=== PATIENT | female | born 1980 | race Caucasian/White ===

== ENCOUNTER 2017-07-28 09:22 | Inpatient (IN) ==
--- NOTE | 2017-07-28 09:46 | Emergency Department Note ---
Disposition Clinical Impression: Vaginal delivery Disposition: Admitted As Inpatient Condition: Fair Abdominal Pain HPI - General Chief Complaint: ED Abdominal Pain Stated Complaint: ABD Pain Time Seen by Provider: 07/28/17 09:27 Source: patient, family Mode of arrival: ambulatory Limitations: physical limitation Nursing Notes Reviewed: Yes Vital Signs Reviewed: Yes - History of Present Illness HPI Narrative: Mrs. Snyder is a 37-year-old woman with no significant medical history of present to the ED with on and off pain for several weeks in her lower abdomen which became acutely worse and early this morning. The pain is located in the center of her abdomen and radiates outward, and she describes it as a cramping sensation similar to when she was elmer during . She says that associated with that she has had some nausea in the past couple of weeks. The pain is severe and constant. She took ibuprofen for which was not helpful. Nothing seems to make the pain any worse. Patient denies any vomiting, diarrhea , constipation. She does admit to having a Mirena IUD placed which has been there for approximately 4 years. She says that she has not had a menstrual cycle since the insertion of her IUD. She denies any fevers, chills, sweats. She has no other acute complaints. Pain Scale: 10 - Related Data Home Medications Medication Instructions Recorded Confirmed Ferrous Sulfate 1 tab PO DAILY 07/28/17 07/28/17 Fish Oil 1 tab PO DAILY 07/28/17 07/28/17 Vitamin B-12 1 tab PO DAILY 07/28/17 07/28/17 Vitamin D 1 tab PO DAILY 07/28/17 07/28/17 Previous Rx's Medication Instructions Recorded Ibuprofen 800 mg PO Q8HR PRN #20 tablet 07/28/17 Allergies Allergy/AdvReac Type Severity Reaction Status Date / Time No Known Allergies Allergy Verified 07/28/17 09:24 Constitutional: Denies: fever, chills, weakness Eyes: Denies: vision change Cardiovascular: Denies: chest pain, palpitations, dyspnea on exertion Gastrointestinal: Reports: abdominal pain, nausea. Denies: vomiting, diarrhea, constipation, melena, hematochezia Genitourinary: Reports: dysuria, frequency, other (Bleeding per vagina). Denies : urgency Musculoskeletal: Reports: back pain Integumentary: Denies: rash Neurological: Denies: headache Psychiatric: Reports: anxiety Endocrine: Denies: fatigue Hematological/Lymphatic: Denies: easy bleeding Abdominal Pain PMH - Past Medical History Medical history: Reports: no medical history Female Surgical History: Reports: no surgical history SUPERVISOR CELL EFFICIENCY history: Reports: no SUPERVISOR CELL EFFICIENCY history Psychiatric history: Reports: no psych history - Social History Smoking status: Never smoker Alcohol use: Reports: none Drug use: Reports: none Physical Exam Gen.: Vitals noted. No acute distress. AAOx3 HEENT: Normocephalic, atraumatic Neck: Supple. No adenopathy. Cardiac: RRR, no murmur, +S1/S2 Pulmonary: CTA bilaterally, no wheezes, rales or rhonchi, equal chest expansion Abdomen: Upper quadrant soft/nontender, there is a palpable firm mass in the location of the uterus which rises to the level of the ubilicus. Back: Nontender throughout. MSK: ROM intact, no joint swelling noted Extremities: no BLE edema, nontender calf, no cyanosis or clubbing Neuro: A&Ox3, moves all extremities, no focal deficits Psych: Appropriate mood and behavior - General Limitations: no limitations General appearance: alert, in no apparent distress Course Vital Signs Temperature 97.6 F 07/28/17 09:24 Pulse Rate 66 07/28/17 09:24 Respiratory Rate 16 07/28/17 09:24 Blood Pressure 134/60 07/28/17 09:24 O2 Sat by Pulse Oximetry 100 07/28/17 09:24 Temperature 97.6 F 07/28/17 09:24 Pulse Rate 66 07/28/17 09:24 Respiratory Rate 16 07/28/17 09:24 Blood Pressure 134/60 07/28/17 09:24 O2 Sat by Pulse Oximetry 100 07/28/17 09:24 Oxygen Delivery Oxygen Delivery Room Air Abdominal Pain - MDM Narrative Medical decision making narrative: Refer to attending's chart for further update. - Lab Data Result diagrams: 07/28/17 09:55 07/28/17 09:55 Lab Results 07/28/17 07/28/17 07/28/17 Range/Units 09:55 09:55 09:55 WBC 13.0 H (4.3-11.1) K/mcL RBC 4.79 (3.82-4.97) M/mcL Hgb 14.9 (11.5-15.4) g/dL Hct 43.3 (35.3-44.9) % MCV 90.4 (83.0-100.0) fL MCH 31.1 (28.0-33.3) pg MCHC 34.4 (31.6-35.5) g/dL RDW 12.8 (11.5-14.5) % Plt Count 292 (140-400) K/mcL MPV 9.4 (9.4-12.4) fL Immature Gran % 0.4 (0-4) % Seg Neutrophils % 86.0 % Lymphocytes % 9.0 % Monocytes % 3.7 % Eosinophils % 0.6 % Basophils % 0.3 % Neutrophils # 11.2 H (1.6-8.9) K/mcL Lymphocytes # 1.2 (0.6-4.6) K/mcL Monocytes # 0.5 (0.0-1.3) K/mcL Eosinophils # 0.1 (0.0-0.6) K/mcL Basophils # 0.0 (0.0-0.2) K/mcL Sodium 137 (136-145) mEq/L Potassium 3.7 (3.5-5.1) mEq/L Chloride 107 (98-107) mEq/L Carbon Dioxide 23 (23-29) mEq/L BUN 8 (6-20) mg/dL Creatinine 0.50 L (0.60-1.20) mg/dL Est GFR ( Amer) > 60 (> 60) Est GFR (Non-Af Amer) > 60 (> 60) BUN/Creatinine Ratio 16 (6-26) Glucose 99 (70-105) mg/dL Calculated Osmolality 282 (280-300) Lactic Acid 1.2 (0.5-2.2) mmol/L Calcium 8.5 L (8.6-10.3) mg/dL Total Bilirubin 0.3 (0.3-1.0) mg/dL Direct Bilirubin 0.0 (0.0-0.2) mg/dL Indirect Bilirubin 0.3 (0.0-1.2) mg/dL AST 21 (13-39) Units/L ALT 24 (7-52) Units/L Alkaline Phosphatase 138 H (34-104) Units/L Serum Total Protein 6.4 (6.4-8.9) g/dL Albumin 3.5 (3.5-5.7) g/dL Globulin 2.9 (2.4-3.5) g/dL Albumin/Globulin Ratio 1.2 (1.1-2.2) Amylase 52 (29-103) Units/L Lipase 13 (11-82) Units/L Beta HCG, Quant 1878 H (Less than 5) mIU/mL Blood Type Antibody Screen 07/28/17 Range/Units 10:42 WBC (4.3-11.1) K/mcL RBC (3.82-4.97) M/mcL Hgb (11.5-15.4) g/dL Hct (35.3-44.9) % MCV (83.0-100.0) fL MCH (28.0-33.3) pg MCHC (31.6-35.5) g/dL RDW (11.5-14.5) % Plt Count (140-400) K/mcL MPV (9.4-12.4) fL Immature Gran % (0-4) % Seg Neutrophils % % Lymphocytes % % Monocytes % % Eosinophils % % Basophils % % Neutrophils # (1.6-8.9) K/mcL Lymphocytes # (0.6-4.6) K/mcL Monocytes # (0.0-1.3) K/mcL Eosinophils # (0.0-0.6) K/mcL Basophils # (0.0-0.2) K/mcL Sodium (136-145) mEq/L Potassium (3.5-5.1) mEq/L Chloride (98-107) mEq/L Carbon Dioxide (23-29) mEq/L BUN (6-20) mg/dL Creatinine (0.60-1.20) mg/dL Est GFR ( Amer) (> 60) Est GFR (Non-Af Amer) (> 60) BUN/Creatinine Ratio (6-26) Glucose (70-105) mg/dL Calculated Osmolality (280-300) Lactic Acid (0.5-2.2) mmol/L Calcium (8.6-10.3) mg/dL Total Bilirubin (0.3-1.0) mg/dL Direct Bilirubin (0.0-0.2) mg/dL Indirect Bilirubin (0.0-1.2) mg/dL AST (13-39) Units/L ALT (7-52) Units/L Alkaline Phosphatase (34-104) Units/L Serum Total Protein (6.4-8.9) g/dL Albumin (3.5-5.7) g/dL Globulin (2.4-3.5) g/dL Albumin/Globulin Ratio (1.1-2.2) Amylase (29-103) Units/L Lipase (11-82) Units/L Beta HCG, Quant (Less than 5) mIU/mL Blood Type O POSITIVE Antibody Screen NEGATIVE
[2017-07-28] MEDS ORDERED: *HR* Morphine 2 MG/ML SYRINGE IVP ONE (09:57)
[2017-07-28 10:05] LABS: Basophils % 0.3 %; Eosinophils # 0.1 K/mcL (0.0-0.6); Eosinophils % 0.6 %; Hematocrit 43.3 % (35.3-44.9); Hemoglobin 14.9 g/dL (11.5-15.4); Immature Granulocytes % 0.4 % (0-4); Lymphocytes # 1.2 K/mcL (0.6-4.6); Mean Corpuscular HGB Conc 34.4 g/dL (31.6-35.5); Mean Corpuscular Hemoglobin 31.1 pg (28.0-33.3); Mean Corpuscular Volume 90.4 fL (83.0-100.0); Mean Platelet Volume 9.4 fL (9.4-12.4); Monocytes # 0.5 K/mcL (0.0-1.3); Monocytes % 3.7 %; Neutrophils # 11.2 K/mcL (1.6-8.9); Platelet Count 292 K/mcL (140-400); Red Blood Count 4.79 M/mcL (3.82-4.97); Red Cell Distribution Width 12.8 % (11.5-14.5)
[2017-07-28] MEDS ORDERED: *HR* Oxytocin 10 UNIT/ML VIAL IM ONE (10:07)
[2017-07-28] MEDS ORDERED: miSOPROStol 100 MCG TABLET RC STA (10:07)
--- NOTE | 2017-07-28 10:10 | Emergency Department Note ---
START Narrative - START START: please disregard this chart
--- NOTE | 2017-07-28 10:13 | Emergency Department Note ---
Disposition Clinical Impression: Vaginal delivery Disposition: Admitted As Inpatient Condition: Fair Referrals: NONE,PCP [Primary Care Provider] - Osmin Prather [Family Provider] - Forms: ED Satisfaction Letter, Work/School Release Time of Disposition: 10:22 HPI - General Chief complaint: ED Abdominal Pain Stated complaint: ABD Pain Time Seen by Provider: 07/28/17 09:27 Source: patient, family Mode of arrival: ambulatory Limitations: no limitations - History of Present Illness HPI Narrative: Concern about status. 37 winnie old female presents to the ED with complaints of lower abdominal pain and currently has a mirena in place. Patient follows with Dr. Lopez and resident is concerned about a uterus that was about to her umbilical area measuring at about 20 weeks. Patient states she is having difficutl turning on to her back because of the pain and appears umcomfortable and in the position when I came with the ultrasound for stat examination of IUP. During my interaction patient staets that she felt something was coming out of her and ran to the bathroom and saton the toilet and said that somethign came out and that she felt increasingly better. At that time I witness a breech still in the canal and feet were hanging into the toilet. We called an OB ALERT. We slowly transitioned patient to the ED cot.. I stablized the and staff helped move her to the bed. We placed her in the lithomy position and Dr. Dumont was at bedside. No pulse in the cord, placenta not delivered. Baby is not moving and appears blue. Arms are still in the canal and head is at the vertex. Dr. Dumont has delivered and infant is nonreactive and is [address] Resendiz [address] Zaman (peds) is present now and has taken over care. Pitocin, Cytotec, IVF and morphine ordered. - Related Data Allergies Allergy/AdvReac Type Severity Reaction Status Date / Time No Known Allergies Allergy Verified 07/28/17 09:24 Constitutional: Denies: fever, chills, weakness Eyes: Denies: vision change Cardiovascular: Denies: chest pain, palpitations, dyspnea on exertion Gastrointestinal: Reports: abdominal pain, nausea. Denies: vomiting, diarrhea, constipation, melena, hematochezia Genitourinary: Reports: dysuria, frequency, other (Bleeding per vagina). Denies : urgency Musculoskeletal: Reports: back pain Integumentary: Denies: rash Neurological: Denies: headache Psychiatric: Reports: anxiety Endocrine: Denies: fatigue Hematological/Lymphatic: Denies: easy bleeding PMH - Social History Smoking Status: Never smoker Alcohol use: Reports: none Drug use: Reports: none Physical Exam - General Limitations: no limitations General appearance: alert, other (appear uncomfortable and in position) - Head Head exam: atraumatic, normocephalic, normal inspection - Eye Eye exam: Present: normal appearance, PERRL, EOMI - Expanded Eye Exam Pupils: Bilateral: reactive - ENT ENT exam: normal exam, normal oropharynx, mucous membranes moist - Expanded ENT Exam External ear exam: Present: normal external inspection Mouth exam: Present: normal external inspection Teeth exam: Present: normal inspection Throat exam: Present: normal inspection - Neck Neck exam: Present: normal inspection, full ROM, trachea midline - Chest Chest inspection: Present: normal inspection, symmetric chest wall rise - Respiratory Respiratory exam: Present: normal lung sounds bilaterally - Cardiovascular Cardiovascular exam: Present: regular rate, normal rhythm, normal heart sounds - Abdominal Exam Abdominal exam: Present: soft, tenderness, distention, normal bowel sounds, other (possible uterus to umbilical, measuring at least 20 weeks). Absent: Non-Tender, guarding, rebound, rigidity Abdominal tenderness: Present: moderate - Female Reimbursement Analyst present during exam: Yes External Exam: Present: other ( in breech position) - Extremities Exam Extremities exam: Present: normal inspection, full ROM. Absent: tenderness, pedal edema - Expanded Upper Extremity Exam Shoulder exam: Present: normal inspection, full ROM Arm exam: Present: normal inspection, full ROM Elbow exam: Present: normal inspection, full ROM Forearm/Wrist exam: Present: normal inspection, full ROM Hand exam: Present: normal inspection, full ROM Vascular exam: Normal: capillary refill, radial pulse - Expanded Lower Extremity Exam Hip/Pelvis exam: Present: normal inspection, full ROM Upper leg exam: Present: normal inspection, full ROM Knee exam: Present: normal inspection, full ROM Lower leg exam: Present: normal inspection, full ROM Ankle exam: Present: normal inspection, full ROM Foot/toe exam: Present: normal inspection, full ROM Neurovascular/Tendon exam: Absent: motor deficit, sensory deficit, tendon deficit - Back Exam Back exam: Present: normal inspection, full ROM. Absent: tenderness - Neurological Exam Neurological exam: Present: alert, oriented X3 - Expanded Neurological Exam Patient oriented to: Present: person, place, time Coma Scale Eye Opening: Spontaneous Coma Scale Motor Response: Obeys Commands Coma Scale Verbal Response: Oriented Coma Scale Total: 15 - Psychiatric Psychiatric exam: Present: normal affect, normal mood - Skin Skin exam: Present: warm, dry, intact, normal color Course Course Narrative: delores has been transferred to care to [facility]. Pelvic US has been called for stat ultrasound per Dr. Dumont. Dr. 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 Vital Signs Temperature 97.6 F 07/28/17 09:24 Pulse Rate 66 07/28/17 09:24 Respiratory Rate 16 07/28/17 09:24 Blood Pressure 134/60 07/28/17 09:24 O2 Sat by Pulse Oximetry 100 07/28/17 09:24 Temperature 97.6 F 07/28/17 09:24 Pulse Rate 66 07/28/17 09:24 Respiratory Rate 16 07/28/17 09:24 Blood Pressure 134/60 07/28/17 09:24 O2 Sat by Pulse Oximetry 100 07/28/17 09:24 Oxygen Delivery Oxygen Delivery Room Air OB/Uterine Contractions - Lab Data Result diagrams: 07/28/17 09:55 Lab Results 07/28/17 Range/Units 09:55 WBC 13.0 H (4.3-11.1) K/mcL RBC 4.79 (3.82-4.97) M/mcL Hgb 14.9 (11.5-15.4) g/dL Hct 43.3 (35.3-44.9) % MCV 90.4 (83.0-100.0) fL MCH 31.1 (28.0-33.3) pg MCHC 34.4 (31.6-35.5) g/dL RDW 12.8 (11.5-14.5) % Plt Count 292 (140-400) K/mcL MPV 9.4 (9.4-12.4) fL Immature Gran % 0.4 (0-4) % Seg Neutrophils % 86.0 % Lymphocytes % 9.0 % Monocytes % 3.7 % Eosinophils % 0.6 % Basophils % 0.3 % Neutrophils # 11.2 H (1.6-8.9) K/mcL Lymphocytes # 1.2 (0.6-4.6) K/mcL Monocytes # 0.5 (0.0-1.3) K/mcL Eosinophils # 0.1 (0.0-0.6) K/mcL Basophils # 0.0 (0.0-0.2) K/mcL
[2017-07-28] MEDS ORDERED: LR IVC SCH (10:15)
[2017-07-28] MEDS ORDERED: OXYTOCIN 20 UNIT IVC SCH (10:15)
--- NOTE | 2017-07-28 10:56 | Event Note ---
Date of Encounter: 07/28/17 Time of Encounter: 10:15 Responded to page to ER after vaginal breech delivery of stillborn . 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 Bruising also noted over head/neck with severe molding. Weight 2 lbs 10.6 oz. placed in mother's arms and provided above information to parents. Mom had IUD in 2012, reports that she did not know that she was and had never felt any movement. Ressured them that there was likely nothing that they did or didn't do that caused this, answered their questions and offered further support as needed.
[2017-07-28] MEDS ORDERED: Naloxone 0.4 MG/ML INJ IVP PRN (11:00)
[2017-07-28] MEDS ORDERED: Ondansetron 4 MG/2 ML VIAL IVP PRN ×2 (11:00→12:30)
[2017-07-28] MEDS ORDERED: Ringers Solution, Lactated 1,000 ML IVC SCH (11:00)
[2017-07-28] MEDS ORDERED: Famotidine 20 MG/2 ML VIAL IVP PRN (11:00)
[2017-07-28 11:14] LABS: Albumin 3.5 g/dL (3.5-5.7); Amylase 52 Units/L (29-103); Bilirubin,Indirect 0.3 mg/dL (0.0-1.2); Bilirubin,Total 0.3 mg/dL (0.3-1.0); Calcium 8.5 mg/dL (8.6-10.3); Carbon Dioxide 23 mEq/L (23-29); Chloride 107 mEq/L (98-107); Potassium 3.7 mEq/L (3.5-5.1); Sodium 137 mEq/L (136-145)
[2017-07-28 11:20] LABS: Alanine Aminotransferase 24 Units/L (7-52); Albumin/Globulin Ratio 1.2 (1.1-2.2); Alkaline Phosphatase 138 Units/L (34-104); Aspartate Amino Transferase 21 Units/L (13-39); BUN/Creatinine Ratio 16 (6-26); Blood Urea Nitrogen 8 mg/dL (6-20); Globulin 2.9 g/dL (2.4-3.5); Glucose 99 mg/dL (70-105); Lipase 13 Units/L (11-82); Osmolality,Calculated 282 (280-300); Total Protein 6.4 g/dL (6.4-8.9); eGFR For African Americans > 60 (> 60); eGFR For Non-African Americans > 60 (> 60)
--- NOTE | 2017-07-28 11:24 | OB/GYN Procedure Note ---
Delivery - Delivery Date: 07/28/17 Provider: Nora Dumont Intrapartum events: other(please specify) (Unknown , unknown dates prior to arrival and delivery in the emergency department) Delivery induction: none Delivery monitor: none Anesthesia: none Estimated Blood Loss: 50 - Infant (s) Infant A Infant Delivery Date: 07/28/17 Infant Delivery Time: 10:08 Presentation: eddie breech Position: unknown (LOS/ breech) Route of delivery: Gender: Female Viability: Nonviable Pounds: 2 Ounces: 11 Shoulder Dystocia: not encountered Placenta: spontaneous (Delayed delivery by approximately 5 hours) Cord: 2 umbilical vessels - Repair Episiotomy: none Laceration Description: None - Complications Delivery complications: none Delivery comments: Patient to the ED complaining of lower abdominal pain. Her abdomen was noted to be gravid, patient was not aware of being at the time. She presented emergency department because of abdominal cramping. She went to the restroom and felt something coming out. She had a gush of fluid at that time. No bleeding. She was put back in bed and no be alert was called. I presented with the fetus being delivered up to the head. The arms were delivered and head flexion was performed with suprapubic pressure. The head was then delivered. The fetus was not alive at the time of delivery. It appeared to have been a demise prior to arrival. The cord was clamped and cut. The cord appeared hemorrhagic. It appears to be a 2 vessel cord. The placenta did not spontaneously deliver. The patient was given 400 mcg of Cytotec and IV Pitocin was started along with the fluid bolus. She was taken to labor and delivery for further evaluation and treatment. The patient was given 200 MCG use of Cytotec at 1430. At 1459 she pushed out a placenta intact with a 50 mL total blood loss. Placenta appeared small. - Disposition Mom disposition: stable in LDR (Taken to labor and delivery after delivery of fetus in the emergency department)
--- NOTE | 2017-07-28 11:35 | OB/GYN History & Physical ---
Date of Encounter: 07/28/17 Time of Encounter: 11:29 Assessment and Plan (1) Breech presentation delivered Current visit: Yes Status: Acute Fetus successfully delivered in eddie breech presentation of nonviable, fetus with multiple malformations (2) No care in current Current visit: Yes Status: Acute Patient reports an LMP of 1 year ago with the Mirena IUD in place. IUD has not been identified at this time. Patient denies being aware of Qualifiers: Trimester: third trimester Qualified Code(s): O09.33 - Supervision of with insufficient care, third trimester (3) Blood type O+ Current visit: Yes Status: Acute Patient does not need RhoGAM (4) malformation Current visit: Yes Status: Acute Fetus assessed by Dr. Zaman. Patient has not yet decided whether she requests genetic testing or autopsy (5) labor with delivery Current visit: Yes Status: Acute Patient unaware of status. Presented in labor with delivery in the emergency department (6) Advanced maternal age in multigravida Current visit: Yes Status: Acute Currently delivered without care. 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 Snyder is a 37 year old female who presented to emergency department complaining of abdominal pain which started last evening. She had a small amount of spotting earlier in the day. When she arrived she reported no active vaginal bleeding and no gushes of fluid. She stated she had a Mirena IUD in for 4 years ago. After exam review of office records revealed that she had an IUD removal and insertion of Mirena on 07/14/13 and had a follow-up office visit on 08/28/13 in IUD thread was visualized. She has not been seen since. She reports a menstrual cycle about a year ago. She reports that she does not check her IUD thread. She had normal term deliveries in 2000 and 2006. Upon arrival it was noticed that there was something protruding through the vagina. The patient had gotten up to go to the bathroom and felt a gush of fluid and something coming out. It was identified at that time that she was delivering a fetus. An OB alert was called and we presented to the ED as the OB team. Past Med Surg Social Fam HX - Past Medical History Source: patient, old records reviewed Medical history: no medical history Psychiatric history: no psych history - Past Surgical History Surgical History: no surgical history - Social History Smoking Status: Never smoker Smokeless Tobacco Status: No Alcohol use: none Drug use: none Obstetrical History - Pregnancies : 3 Para: 2 Term: 2 Medications and Allergies 3 Allergy/AdvReac Type Severity Reaction Status Date / Time No Known Allergies Allergy Verified 07/28/17 09:24 Review of System OB All systems PM: reviewed and no additional remarkable complaints except as stated - Gastrointestinal Gastrointestinal: abdominal pain, cramping - Genitourinary Genitourinary: as per HPI - Menstruation Menstruation: as per HPI, amenorrhea on BC Exam - Vital Signs Vital signs: Initial Vital Signs Temp Pulse Resp BP Pulse Ox 97.6 F 66 16 134/60 100 07/28/17 09:24 07/28/17 09:24 18 09:24 07/28/17 09:24 07/28/17 09:24 - Constitutional Constitutional: well developed, well nourished, average body habitus, moderate distress - HEENT HEENT: Normocephaly, Mucus Membranes Moist - Neck Neck exam: normal inspection, supple - Lungs Respiratory exam: CTAB - Cardiovascular Cardiovascular exam: RRR - Abdomen Abdomen: Present: bowel sounds normal, gravid - Extremities Extremities exam: normal inspection (Varicose veins noted in the right lower extremity), warm Deep Tendon Reflex Grade: 3+ Normal But Brisk - Vulva Vulva: bilateral: normal - Vagina Vagina: Present: normal moisture - Uterus Uterus exam: Present: enlarged, tender - Anus/Rectum Anus/Rectum: Present: normal perianal skin Results Result Diagrams: 07/28/17 09:55 07/28/17 09:55 Abnormal lab results WBC 13.0 K/mcL (4.3-11.1) H 07/28/17 09:55 Neutrophils # 11.2 K/mcL (1.6-8.9) H 07/28/17 09:55 Creatinine 0.50 mg/dL (0.60-1.20) L 07/28/17 09:55 Calcium 8.5 mg/dL (8.6-10.3) L 07/28/17 09:55 Alkaline Phosphatase 138 Units/L (34-104) H 07/28/17 09:55 All other labs normal. - VTE Reasons for not Prescribing Prophylaxis: Treatment not Indicated - Low risk for VTE
[2017-07-28] MEDS ORDERED: Acetaminophen 325 MG TABLET PO PRN (12:30)
[2017-07-28] MEDS ORDERED: Measles/Mumps/Rubella Vacc 0.5 ML VIAL SQ PRN (12:30)
[2017-07-28] MEDS ORDERED: Oxytocin 20 units/ LR 1000 mL 20 UNIT/1,000 ML BAG IVC SCH ×2 (12:30)
--- NOTE | 2017-07-28 13:18 | Event Note ---
Date of Encounter: 07/28/17 Time of Encounter: 13:15 The patient reports some mild cramping. Afeb, VSS. She has not experienced any bleeding. Placenta checked and still in place. Aida clamp removed and plastic cord clamp placed for patient comfort. Gentle traction was applied and suprapubic pressure applied but no placental delivery eminent. 1 IV Pitocin bag has been given. Patient currently on IV Pitocin at 125. She will be scheduled for 200 MCG's of Cytotec at 1430.
[2017-07-28] MEDS ORDERED: miSOPROStol 100 MCG TABLET PO ONE (14:30)
[2017-07-28] MEDS: Ibuprofen 600 MG TABLET PO PRN ×2 (14:43→21:14)
--- NOTE | 2017-07-28 18:14 | Event Note ---
Date of Encounter: 07/28/17 Time of Encounter: 18:12 The patient has been advised as to the ultrasound and abdominal x-ray findings. There is an IUD within her pelvis. The ultrasound shows no IUD within the uterus. The patient is wanting to have a tubal ligation if she needs a laparoscopy to remove the IUD. She has given informed consent and has signed Medicaid papers. She realizes that the surgery will be delayed until 6-8 weeks , allowing for the pelvic physiology to return to normal to allow laparoscopy. She denies any pain. The ultrasound showed a very thin endometrial stripe, no products of conception retained. The patient is requesting to stay overnight, she is trying to sort through her loss.
[2017-07-28 20:36] LABS: Amphetamine Screen,Urine Negative ng/mL (Cutoff=1000); Barbiturate Screen,Urine Negative ng/mL (Cutoff=200); Benzodiazepines Screen,Urine Negative ng/mL (Cutoff=200); Cannabinoid Screen,Urine Negative ng/mL (Cutoff = 50); Cocaine Screen,Urine Negative ng/mL (Cutoff= 300); Opiate Screen,Urine Negative ng/mL (Cutoff=300); Phencyclidine Screen,Urine Negative ng/mL (Cutoff=25)
[2017-07-29] MEDS: Ibuprofen 600 MG TABLET PO PRN (05:39)
[2017-07-29 08:15] VITALS: BP 137/85
[2017-07-29] MEDS ORDERED: Prenatal Vit/FA 1 EACH TABLET PO SCH (09:00)
--- NOTE | 2017-07-29 09:19 | Discharge Summary ---
Date of Encounter: 07/29/17 Time of Encounter: 09:17 - Discharge Diagnosis (1) IUFD at 20 weeks or more of gestation Priority: Secondary Status: Acute Comments: Patient had unknown Infant per [facility] [employer] appeared to be greater than 30 weeks gestation with growth restriction (2) Vaginal delivery Priority: Secondary Status: Acute Comments: routine care discharge home today follow up with Dr. Dumont in 4-6 weeks tubal consent signed in hospital (3) Malpositioned IUD Priority: Secondary Status: Acute Comments: Patient to have surgically removed after 6 weeks Qualifiers: Encounter type: initial encounter Qualified Code(s): T83.32XA - Displacement of intrauterine contraceptive device, initial encounter - Discharge Medications Prescriptions: Ibuprofen 800 mg PO Q8HR PRN #20 tablet PRN Reason: Pain Home Medications: Ferrous Sulfate 1 tab PO DAILY 07/28/17 [History] Fish Oil 1 tab PO DAILY 07/28/17 [History] Ibuprofen 800 mg PO Q8HR PRN #20 tablet 07/28/17 [Rx] Vitamin B-12 1 tab PO DAILY 07/28/17 [History] Vitamin D 1 tab PO DAILY 07/28/17 [History] Allergies/Adverse Reactions: 3 Allergy/AdvReac Type Severity Reaction Status Date / Time No Known Allergies Allergy Verified 07/28/17 09:24 Data - Impressions ITS Impressions KUB X-Ray 07/28/17 15:18 IMPRESSION: IUD is identified in the lower abdomen just to the right of midline. Endometrial location cannot be confirmed on plain film imaging. Pelvic ultrasound may be considered for nonemergent follow-up to better characterize uterus and endometrium. D/ / Malvin Dunn MD / Malvin Dunn MD Interpreting Provider: Malvin Dunn MD Pelvis Ultrasound 07/28/17 15:39 IMPRESSION: No IUD is present in the endometrial canal. Enlarged state. Trace pelvic ascites, a nonspecific finding and favored to be physiologic. Ovaries not visualized due to overlying bowel gas. D/ / 07/28/2017 17:19:44 [facility] Inter[facility] Provider: Mathieu Parra MD Date of admission: 07/28/17 15:06 Primary care physician: PCP NONE Discharging clinician: Reina Duncan Anticipated date of discharge: 07/29/17 - Patient Status Disposition: Home, Self-Care Condition: Fair Functional capacity at discharge: independent ambulation - Discharge Instructions Follow Up With: NONE,PCP [Primary Care Provider] - Osmin Prather [Family Provider] - Nora Dumont MD [Partnered Physician] - - Diet and Activity Activity: increase activity as tolerated Diet: regular diet Hospital Course Reason for admission: active labor, IUFD Delivery: (breech in ER per Dr. Dumont) Episiotomy: none Laceration: none Other procedures: none complications: other (delayed delivery of placenta) Discharge diagnosis: delivery (IUFD) baby: female Time Attestation: Total time spent providing and/or coordinating discharge services: Time Spent: Less than 30 minutes Exam - Constitutional Vitals: Temp Pulse Resp BP Pulse Ox 98.3 F 57 16 137/85 98 07/29/17 08:00 07/29/17 08:00 07/29/17 08:00 07/29/17 08:00 07/29/17 05:40 General appearance IM: A&O X 3, pleasant, answers questions appropriately - Respiratory Respiratory exam: Present: CTAB - Cardiovascular Cardiovascular exam IM: Present: RRR, +S1, +S2 - GI/Abdominal GI/Abdominal exam IM: normal bowel sounds - Uterine Tone: Firm Uterus Position: 2 Fingers Below Umbilicus, Midline - Extremities Exam Extremities exam IM: Present: full ROM, normal capillary refill, normal inspection - Neurological Exam Neurological exam: alert, oriented X3, reflexes normal
== END 2017-07-29 11:40 | disposition home or self-care (01) | DRG 560 ==
LOC: EMEROO 09:22 → 1NENUOBS 09:22
PROVIDERS: ADMIT Obstetrics & Gynecology; ATTEND Obstetrics & Gynecology